=== PATIENT | female | born 1940 | race Caucasian/White ===

== ENCOUNTER 2023-12-20 00:55 | Emergency (ER) | payer OTHER, SELFPAY ==
[2023-12-20 01:04] VITALS: BP 170/110
--- NOTE | 2023-12-20 01:17 | ED.GENMED ---
History of Present Illness
General
Chief Complaint: Post Operative Problem(s)
Time Seen by Provider: 12/20/23 01:17
History of Present Illness
History of Present Illness:
HPI: Patient had left TKR on 12/16/[address] Murphy. She had been off of Eliquis but did take half doses over the last 4 doses. This evening she developed rather significant bleeding into the dressing. She reports no significant pain.
EXAM:
GENERAL: Well appearing in no distress
HEENT: Moist oral mucosa
CARDIOVASCULAR: No murmurs, normal heart rate, irregular rhythm, No chest wall tenderness
PULMONARY: No respiratory distress, breath sounds are clear and equal
NEUROLOGIC: Excellent strength all extremities, no coordination deficits
PSYCHIATRIC: Appropriate mental status, normal insight and judgement
EXTREMITIES: There is extensive postoperative ecchymosis noted to the left lower extremity, surgical wound noted to the midline anterior knee, no evidence of infection, I removed the initial dressing and there was a large amount of blood noted.
There is a small area of dehiscence at the level of the skin at the midpoint of the wound.
SKIN: As above
TIME OF INITIAL ENCOUNTER: 1:40 AM
NUMBER AND COMPLEXITY OF PROBLEMS ADDRESSED AT THE ENCOUNTER
� Chronic conditions affecting care: A-fib on Eliquis, high blood pressure, hyperlipidemia
� Acute Exacerbation and/or Progression of Chronic Illness: This is an acute problem
� Differential Diagnosis includes: Postoperative hemorrhage, wound dehiscence, no evidence for infection
AMOUNT AND/OR COMPLEXITY OF DATA TO BE REVIEWED AND ANALYZED
� I performed an independent evaluation of and my interpretation is:
EKG:
CT:
X-rays:
Laboratory Studies:
Other:
� Review of other/old records: No old records available for review in [facility]
� Clinical information was obtained by an independent historian: I spoke to family at bedside
� Prescriptions/Medications Considered but not given:
� Further testing considered but not performed:
RISK OF COMPLICATIONS AND/OR MORBIDITY OR MORTALITY OF PATIENT MANAGEMENT
� Social determinants of health affecting care: Lives at home
� Discussion with other providers: Dr. Lockwood who agrees with glue and/or Steri-Strips
� Escalation of care including admission/observation vs risk of discharge considered: Regarding the Eliquis, she is in permanent A-fib. Given her age and gender I feel she is at high risk for stroke therefore will only hold 1
additional dose and then she is to resume the Eliquis in the evening.
Phy Exam
Physical Exam
Physical Exam:
See HPI
Course
Vital Signs
Initial and Last Documented VS:
Initial Vital Signs
Temp Pulse Resp BP Pulse Ox
97.7 F 85 20 170/110 96
12/20/23 01:04 12/20/23 01:04 12/20/23 01:04 12/20/23 01:04 12/20/23 01:04
Last Documented Vital Signs
Temp Pulse Resp BP Pulse Ox
97.7 F 94 19 170/110 97
12/20/23 01:04 12/20/23 01:34 12/20/23 01:34 12/20/23 01:04 12/20/23 01:34
Procedures
Laceration Closure
Left Knee:
Status of Wound: clean
Size of Wound in cm: 3
Additional information:
I used Mastisol skin adhesive along with Steri-Strips to close the wound
*Critical Care Note
Total Time (30-74mins, 75-104mins- exclusive of procedures): Not Applicable
ED Attending Note
-
Portions of this chart may have been created with voice recognition software.� Occasional wrong word or��sound alike� substitutions may have occurred due to the inherent limitations of voice recognition software.
Discharge Plan
Departure
Patient Disposition: Home (Routine Discharge)
Date of Disposition: 12/20/23
Time of Disposition: 01:43
Patient with high blood pressure during this ER visit?: Yes
Discharge Problem:
Post-op bleeding
Instructions: Bleeding After Surgery
Activity Restrictions/Additional Instructions:
There is a small dehiscence at the skin with some bleeding noted. I spoke to Dr. Lockwood, covering for Dr. Murphy. I placed Steri-Strips and glue the area. Hold the next dose of Eliquis then resume assuming no further significant bleeding. Call
Jeffrey in the morning to update him on how you are doing.
Interventions
Interventions:
*Risk Screen - Suicide Last Done: 12/20/23 01:04
*General Assessment Last Done: 12/20/23 01:04
*Neglect/Abuse Screening Last Done: 12/20/23 01:04
ED- Fall Risk Assessment Last Done: 12/20/23 01:04
*ED COVID-19 Vaccine History Last Done: 12/20/23 01:04
*Nursing Disposition Last Done: 12/20/23 01:47
ED-Skin Assessment Last Done: 12/20/23 01:35
Discharge Date and Time
Print Language: [place]
== END 2023-12-20 01:59 | disposition home or self-care (01) ==
LOC: EMR 00:55
PROVIDERS: EMERGENCY PHYSICIAN Emergency Medicine; FAMILY PHYSICIAN Internal Medicine
DX: L76.22 Postprocedural hemorrhage of skin and subcutaneous tissue following other procedure (principal); Z79.01 Long term (current) use of anticoagulants
CPT/HCPCS: 99282; 12002